=== PATIENT | male | born 1980 | race Caucasian/White ===

== ENCOUNTER → 2017-05-10 | Outpatient (CLI) | payer BC ==
[2017-05-10 16:25] LABS: T4, Free (Free Thyroxine) 1.33 ng/dL (0.78-2.19)
[2017-05-11 01:38] LABS: Thyroglobulin 5.37 ng/mL (1.60-59.90)
== END | disposition home or self-care (01) ==
LOC: LABWHC1 15:09
PROVIDERS: ATTEND Family Medicine
DX: R94.6 Abnormal results of thyroid function studies (principal); R01.1 Cardiac murmur, unspecified; R03.0 Elevated blood-pressure reading, without diagnosis of hypertension
CPT/HCPCS: 36415; 84432; 84439; 84442; 84443; 86800

== ENCOUNTER → 2017-05-14 | Outpatient (CLI) | payer BC ==
--- NOTE | 2017-05-14 10:06 | ECHOF ---
Referral Reason:R01.1 Cardiac Murmur MEASUREMENTS -------- HEIGHT: 180.3 cm WEIGHT: 90.7 kg BP: 158/74 RVIDd: 2.7 cm (< 3.3) IVSd: 1.1 cm (0.6 - 1.1) LVIDd: 5.8 cm (3.9 - 5.3) LVPWd: 1.1 cm (0.6 - 1.1) IVSs: 1.6 cm LVIDs: 4.0 cm LVPWs: 1.6 cm LA Diam: 3.5 cm (2.7 - 3.8) LAESV Index (A-L): 38.75 ml/m Ao Diam: 3.1 cm (2.0 - 3.7) AV Cusp: 2.5 cm (1.5 - 2.6) EPSS: 0.4 cm MV E Bebeto: 0.90 m/s MV DecT: 295 ms MV A Bebeto: 0.72 m/s MV E/A Ratio: 1.25 RAP: 5.00 mmHg RVSP: 27.35 mmHg MV EF SLOPE: 154.45 mm/s (70 - 150) MV EXCURSION: 1.86 cm (> 18.000) FINDINGS -------- Sinus rhythm. This was a technically good study. The left ventricular size is normal. There is borderline concentric left ventricular hypertrophy. Overall left ventricular systolic function is normal with, an EF between 55 - 60 %. The right ventricle is normal in size. LA is moderately dilated 34-39 ml/m2 The right atrium is normal in size. The aortic valve is trileaflet and appears structurally normal. The mitral valve is normal. Mild mitral regurgitation is present. Mild tricuspid regurgitation present. Right ventricular systolic pressure is normal at < 35 mmHg. There is no pulmonic regurgitation present. The aortic root size is normal. Normal inferior vena cava with normal inspiratory collapse consistent with estimated right atrial pre ssure of 5 mmHg. There is no pericardial effusion. CONCLUSIONS -------- 1. Sinus rhythm. 2. This was a technically good study. 3. The left ventricular size is normal. 4. There is borderline concentric left ventricular hypertrophy. 5. Overall left ventricular systolic function is normal with, an EF between 55 - 60 %. 6. LA is moderately dilated 34-39 ml/m2 7. The aortic valve is trileaflet and appears structurally normal. 8. Mild mitral regurgitation is present. 9. Mild tricuspid regurgitation present. 10. Right ventricular systolic pressure is normal at < 35 mmHg. 11. There is no pulmonic regurgitation present. 12. The aortic root size is normal. 13. Normal inferior vena cava with normal inspiratory collapse consistent with estimated right atrial pressure of 5 mmHg. 14. There is no pericardial effusion. DEPLOYMENT ENGINEER: JEN Daugherty
== END | disposition home or self-care (01) ==
LOC: RADECHMAIN 08:42
PROVIDERS: ATTEND Family Medicine
DX: I08.1 Rheumatic disorders of both mitral and tricuspid valves (principal); Z88.8 Allergy status to other drugs, medicaments and biological substances
CPT/HCPCS: 93306

== ENCOUNTER → 2017-07-25 | Outpatient (CLI) | payer BC ==
--- NOTE | 2017-07-25 15:08 | US ---
EXAMINATION TYPE: US thyroid st tissue head/neck DATE OF EXAM: 07/25/2017 COMPARISON: NONE CLINICAL HISTORY: R94.6 ABN THYROID STUDIES. Abnormal thyroid function GLAND SIZE: Right Lobe: 4.8 x 1.8 x 2.7 cm Overall Parenchyma: homogenous Left Lobe: 4.9 x 1.9 x 2.1 cm Overall Parenchyma: homogeneous Isthmus Thickness: 0.4 cm NODULES RIGHT: # of nodules measured on right: 0 LEFT: # of nodules measured on left: 0 ISTHMUS: # of nodules measured in the isthmus: 0 Bilateral neck scanned, normal appearing lymph nodes left neck No distinct nodule noted bilateral thyroid lobes IMPRESSION: Prominent size of the homogeneous thyroid gland without focal nodule or hyperemia.
== END | disposition home or self-care (01) ==
LOC: RADUSWWP 12:47
PROVIDERS: ATTEND Family Medicine
DX: R94.6 Abnormal results of thyroid function studies (principal)
CPT/HCPCS: 76536

== ENCOUNTER → 2017-07-26 | Outpatient (CLI) | payer BC ==
[2017-07-26 19:53] LABS: Thyroid Peroxidase Antibodies 39.8 U/mL (0.0-60.0)
[2017-07-26 20:49] LABS: Thyroglobulin 6.07 ng/mL (1.60-59.90)
[2017-07-27 11:51] LABS: Thyroxine Binding Globulin 16.7 ug/mL (14.0 - 31.0)
[2017-07-27 11:56] LABS: Thyroid Stim Immun Quant <0.10 IU/L (<0.10)
== END | disposition home or self-care (01) ==
LOC: LABWHC1 13:43
PROVIDERS: ATTEND Family Medicine
DX: R94.6 Abnormal results of thyroid function studies (principal); I34.0 Nonrheumatic mitral (valve) insufficiency; I10 Essential (primary) hypertension
CPT/HCPCS: 36415; 84432; 84442; 84445; 86376; 86800

== ENCOUNTER → 2017-10-03 | Outpatient (CLI) | payer BC ==
[2017-10-03 16:10] LABS: T4, Free (Free Thyroxine) 1.25 ng/dL (0.78-2.19)
== END | disposition home or self-care (01) ==
LOC: LABWHC1 15:14
PROVIDERS: ATTEND Family Medicine
DX: R94.6 Abnormal results of thyroid function studies (principal)
CPT/HCPCS: 36415; 84439; 84443

== ENCOUNTER → 2019-02-17 | Outpatient (CLI) | payer BC ==
--- NOTE | 2019-02-17 12:24 | CT ---
EXAMINATION TYPE: CT sinus wo con DATE OF EXAM: 02/17/2019 COMPARISON: NONE HISTORY: WATST and sinus pressure CT DLP: 728.2 mGycm. Automated Exposure Control for Dose Reduction was Utilized. TECHNIQUE: CT scan of the sinuses is performed without contrast, axial images are obtained, coronal r eformatted images are also reviewed. FINDINGS: There are bilateral mucosal retention cysts versus less likely polyps of the medial inferio r maxillary sinuses measuring 1.1 cm on the right and 1.3 cm on the left. On the right there is an ad ditional small probable mucosal retention cyst anteriorly measuring 0.4 cm in the maxillary sinus. Re maining paranasal sinuses are well aerated. Ostiomeatal complexes are patent. Nonobstructive bilateral Delta cells are seen. No noam bullosa. No significant nasal turbinate mucosal hypertrophy. No significant nasal septal deviation. There is an incompletely visualized ossified structure posterior to the left mandibular ramus extendi ng downward to the angle of the mandible within the results engineer space. No apparent soft tissue compone nt is seen. No periosteal reaction of the mandible or osseous erosion. Orbits are symmetric and globe s are intact. Incidentally noted frontal, left temporal and frontal dermal and subcutaneous calcifications are seen . IMPRESSION: 1. Bilateral maxillary mucosal retention cysts versus less likely polyps. 2. Patency of the ostiomeatal complexes. 3. Lobulated irregular ossified structure partially seen in the left results engineer space without visuali zed osseous destruction or soft tissue component. CT of the neck is recommended with contrast for fur ther evaluation and anatomic delineation.
== END | disposition home or self-care (01) ==
LOC: RADCTMAIN 11:35
PROVIDERS: ATTEND Nurse Practitioner Family
DX: R93.0 Abnormal findings on diagnostic imaging of skull and head, not elsewhere classified (principal)
CPT/HCPCS: 70486

== ENCOUNTER → 2019-04-11 | Outpatient (CLI) | payer BC ==
--- NOTE | 2019-04-11 08:52 | CT ---
EXAMINATION TYPE: CT soft tissue neck w con DATE OF EXAM: 04/11/2019 COMPARISON: None HISTORY: Abn CT sinus CT DLP: 591.2 mGycm CONTRAST: Patient injected with 100 mL of Isovue 300. TECHNIQUE: Axial images at 3 mm thick sections. Reconstructed images in the coronal plane and sagitt al plane are reviewed. FINDINGS: Limited CT sections are obtained the lung apices. The lung apices appear clear. CT neck: The torus tubarius and fossa of Rosenmuller are normal. Financial Director spaces are normal. Smal l retention cysts are likely present within the maxillary sinuses. Parotid glands appear normal and symmetrical. Submandibular glands, are normal. Parapharyngeal spac es are normal. No suspicious adenopathy is evident. Small lymph node is within the submental space. The hypopharynx appears within normal limits. Vocal cord level appear symmetrical. Thyroid as visualized is normal. Osseous structures are normal. Posterior to the left mandibular angle is dense calcification. A second area is lateral and posterior to the condyle. This appears to have a couple of foci at each location on the left. This appears to reside within the fat planes and not associated directly with a specific mass. There may be some invo lvement of the inferior parotid gland on the left and in in close approximation with the mandibular b one, however direct communication is not identified. IMPRESSIONS: 1. Dense benign-appearing calcifications posterior to the left mandibular angle and condyle. Recommen d MRI without contrast to evaluate for underlying soft tissue abnormality. Evaluation for hypoparathy roidism is also recommended.
== END | disposition home or self-care (01) ==
LOC: RADCTMAIN 07:10
PROVIDERS: ATTEND Otolaryngology
DX: M79.89 Other specified soft tissue disorders (principal); M89.8X8 Other specified disorders of bone, other site
CPT/HCPCS: 70491; Q9967

== ENCOUNTER → 2019-05-13 | Outpatient (CLI) | payer BC ==
--- NOTE | 2019-05-13 12:55 | MR ---
MRI neck without contrast HISTORY: M 50.80 Abnormal imaging Correlation to CT 04/11/2019 Multiplanar multisequence imaging through the neck. There is no interval change. The calcifications seen about the left mandible and submandibular region correspond to precious calcifications. There is no abnormal soft tissue mass. Air-fluid levels present within the left maxillary sinus which is developed in the interval, mucoperiosteal thickening present within the bilateral maxillary sinuses, ethmoid air cells. Submandibular gland show symmetric appear ance as do the parotid glands. The airway is patent. Epiglottis shows an unremarkable appearance. Tonsillar pillars are normal. Skul l base is unremarkable. There are normal vascular flow voids. IMPRESSION: Benign calcifications associated with the lymph nodes may be due to prior treatment or gr anulomatous disease. Correlate for left maxillary sinusitis. Sinus disease as described.
== END | disposition home or self-care (01) ==
LOC: RADMRIMAIN 09:28
PROVIDERS: ATTEND Otolaryngology
DX: I89.8 Other specified noninfective disorders of lymphatic vessels and lymph nodes (principal); M50.80 Other cervical disc disorders, unspecified cervical region
CPT/HCPCS: 36415; 70540; 82330; 83970

== ENCOUNTER 2019-12-25 07:18 | Day surgery (SDC) | payer BC ==
[2019-12-23 10:45] VITALS: BMI 34.7
[~2019-12-25 07:18] MED LIST: DEXAMETHASONE SOD PHOSPHATE 10 MG/ML 1 ML VIAL IV ONE; DEXAMETHASONE SOD PHOSPHATE 20 MG in DEXTROSE 5% IN WATER 50 ML IV ONE; FAMOTIDINE 20 MG/2 ML VIAL IV ONE; LACTATED RINGERS 1,000 ML IV SCH; LIDOCAINE 1% (10MG/ML) FOR IV START INTRADERMA PRN; ONDANSETRON 4 MG/2 ML VIAL IVP ONE
[2019-12-25] MEDS: OXYMETAZOLINE 0.05% NASL SPRAY 1 SPRAY BOTTLE NASAL ONE ×5 (07:49→08:23)
[2019-12-25] MEDS ORDERED: MIDAZOLAM 2 MG/2 ML VIAL IV ONE (08:22)
[2019-12-25] MEDS ORDERED: fentaNYL (PF) 50 MCG/ML 2 ML AMP ONE (08:36)
[2019-12-25] MEDS ORDERED: DEXAMETHASONE SOD PHOSPHATE 10 MG/ML 1 ML VIAL ONE (08:36)
[2019-12-25] MEDS ORDERED: MIDAZOLAM 2 MG/2 ML VIAL ONE (08:36)
[2019-12-25] MEDS ORDERED: LIDOCAINE 1% INJ 10MG/ML (20 ML MDV) ONE (08:36)
[2019-12-25] MEDS ORDERED: SUCCINYLCHOLINE CHLORIDE VIAL 200 MG/10 ML VIAL IV ONE (08:36)
[2019-12-25] MEDS ORDERED: PROPOFOL 10 MG/ML 20 ML VIAL IV ONE (08:36)
[2019-12-25] MEDS ORDERED: LIDOCAINE 1%-EPI 1:100,000 20 ML VIAL SQ ONE ×2 (09:05)
[2019-12-25] MEDS ORDERED: EPINEPHrine 1 MG/ML (MDV) 30 ML VIAL TOPICAL ONE (09:06)
[2019-12-25] MEDS ORDERED: BACITRACIN ZINC 500 UNIT/GM OINT 28.4 GM TUBE TOPICAL ONE (09:07)
[2019-12-25] MEDS ORDERED: FLUORESCEIN STRIPS 1 MG STRIP MISCELLANE ONE (09:08)
[2019-12-25] MEDS ORDERED: LACTATED RINGERS 1,000 ML IV ONE (09:32)
[2019-12-25 09:49] VITALS: TEMP 97.8
--- NOTE | 2019-12-25 09:59 | P.OP ---
Date of Procedure: 12/25/19 Preoperative Diagnosis: Deviated nasal septum Bilateral hypertrophy of the inferior nasal turbinates Chronic bilateral maxillary sinusitis with polyposis Postoperative Diagnosis: Same Procedure(s) Performed: Bilateral functional endoscopic sinus surgery with maxillary antrostomies maxillary sinus polypectomy Septoplasty Bilateral submucosal resection of the inferior nasal turbinates with outfracturing compression Anesthesia: LUCIA Surgeon: Kris Marie Estimated Blood Loss (ml): 10 Pathology: other (Sinonasal) Condition: stable Disposition: PACU Indications for Procedure: This patient is a 39-year-old white male who is had chronic nasal obstruction and sinonasal issues. He's had nasal obstruction for years and has tried cortisone nasal sprays and antihistamines oral steroids antibiotics with no improvement. CAT scan evaluation shows maxillary sinus polyps and chronic maxillary sinusitis and deviated nasal septum along with a large obstructive inferior turbinates. He's failed medical therapy and has requested surgical intervention for correction of his long-standing many year nasal obstructive issue along with his chronic mouth breathing etc. All risks, benefits, and alternative therapies were discussed. Risks of bleeding, infection, need for secondary surgery etc. etc. etc. were discussed. Consent was obtained and all questions were answered. Operative Findings: Patient was found have bilateral maxillary sinus disease and polyps along with a deviated nasal septum which was severe and large obstructive inferior turbinates. These issues were corrected surgically today. Description of Procedure: This patient was taken to the operative room and placed in the supine position. A general inhalation anesthetic was administered to the patient by the department of anesthesia with a functioning IV line in place. The patient was monitored throughout the entire case by the department of anesthesia. The eyes were taped shut for protection. The patient was placed in a slight reverse Trendelenburg position. The patient had previously utilize Afrin nasal spray preoperatively. The nose was evaluated and the septum lateral nasal wall and inferior turbinates were injected with lidocaine 1% with epinephrine 1 100,000 bilaterally. Approximately 10 minutes were allowed wait for full vasoconstrictive effects to take place. At this point a caudal incision was made over the caudal portion of the left septum down to the mucoperichondrium. A mucoperichondrial flap was elevated on the left side and dissection was carried with use of tunnels posteriorly. We then made a crossover incision through the cartilage to the contralateral side and for the mucoperichondrial flap development was performed to the extent of visualization on the contralateral side. After the cartilage was freed with use of several crosshatching incisions and removal of some redundant strips of septal cartilage, the septum was straightened and placed back in the midline. The septum was sutured fixated to the ovarian groove. Excellent straightening occurred and the septum was visibly straight. Incision was closed with a 40 rapid Vicryl. We utilized a running nonlocking fashion for closure of the incision. A quilting stitch was used to reapproximate the septal flaps with use of a 40 rapid Vicryl. We then entered the nose with a 0 and 30 Lambert brigid endoscope. Previous to this we did inject the lateral nasal wall and middle turbinate and uncinate process with lidocaine 1% with epinephrine 1 100,000. Approximately 10 minutes were allowed wait for full vasoconstrictive effects to take place. With use of a microdebrider and a pediatric backbiter, we took down the uncinate process bilaterally. We then opened the maxillary sinuses bilaterally. Bilateral infraturbinal maxillary antrostomies were also performed with a Tee. We utilized a microdebrider for this and entered the maxillary sinuses and removed diseased tissue. This was done bilaterally. . Xerogel was inserted and minimal bleeding was encountered. We reinspected the skull base there is no signs of any orbital penetration or signs of any intracranial penetration. The sugical site was reinspected after the xerogel was placed and no bleeding was seen. Intranasal splints were inserted and fixated at the end of the case. We utilized [place] nasal splints. This was done at the end of the case. There will be removed and the patient returns to the office. Attention was then paid to the inferior turbinates. The bilateral inferior turbinates were hypertrophic and obstructive. We entered the anterior portion of the inferior turbinates with use of a microdebrider. We remove bone and submucosal elements with use of a microdebrider bilaterally. The inferior turbinates underwent a submucosal resection with removal of submucosal tissue and bone. We obtained a much better and normal in size for breathing. The inferior turbinates were then outfractured and compressed with a EnCoate nasal elevator. Excellent airway was obtained and was symmetric bilaterally. No bleeding was encountered.
[2019-12-25] MEDS ORDERED: amLODIPine 10 MG TAB PO STA (10:03)
[2019-12-25] MEDS ORDERED: HYDROcodone/APAP 5-325MG 1 EACH TAB ONE (11:04)
[2019-12-25] MEDS ORDERED: HYDROcodone/APAP 5-325MG 1 EACH TAB PO ONE (11:06)
[2019-12-25 11:25] VITALS: BP 162/83; PULSE 71; RESP 16
== END 2019-12-25 12:00 | disposition home or self-care (01) ==
LOC: OR 07:18
PROVIDERS: ATTEND Otolaryngology
DX: J32.0 Chronic maxillary sinusitis (principal); J33.8 Other polyp of sinus; Z82.49 Family history of ischemic heart disease and other diseases of the circulatory system; I10 Essential (primary) hypertension; J34.2 Deviated nasal septum; J34.3 Hypertrophy of nasal turbinates; I83.90 Asymptomatic varicose veins of unspecified lower extremity; Z79.899 Other long term (current) drug therapy
CPT/HCPCS: 88305; 88300; 30520; 31267; 30140; J0171; J2250; J0330; J1100; J2405; J0690; J2001; J3010; J2704

== ENCOUNTER → 2021-05-03 | Outpatient (CLI) | payer BC ==
[2021-05-03 15:44] LABS: T4, Free (Free Thyroxine) 1.37 ng/dL (0.800-1.800)
[2021-05-03 16:32] LABS: Thyroid Peroxidase Antibodies <9.0 U/mL (0.0-33.0)
== END | disposition home or self-care (01) ==
LOC: LABWHC1 10:21
PROVIDERS: ATTEND Family Medicine
DX: R94.6 Abnormal results of thyroid function studies (principal)
CPT/HCPCS: 36415; 84439; 84443; 84445; 84481; 86376; 86800